=== PATIENT | male | born 1990 | race Caucasian/White ===

== ENCOUNTER 2018-09-27 17:33 | Emergency (ER) | payer SELFPAY ==
[~2018-09-27] VITALS: Ht 172.7 cm; Wt 112.0 kg
[2018-09-27] MEDS ORDERED: KETOROLAC 60MG/2ML VIAL IM ONE (18:15)
[2018-09-27 18:33] VITALS: BP 158/94
== END 2018-09-27 18:32 | disposition home or self-care (01) ==
LOC: ER 17:33
DX: S50.02XA Contusion of left elbow, initial encounter (principal); S40.012A Contusion of left shoulder, initial encounter; M62.838 Other muscle spasm; V49.59XA Passenger injured in collision with other motor vehicles in traffic accident, initial encounter; Y93.89 Activity, other specified; Y92.89 Other specified places as the place of occurrence of the external cause; Y99.8 Other external cause status; Z98.890 Other specified postprocedural states
CPT/HCPCS: 96372; 99283; J1885

== ENCOUNTER 2019-08-21 05:27 | Emergency (ER) | payer SELFPAY ==
[~2019-08-21] VITALS: Ht 172.7 cm; Wt 107.0 kg
[2019-08-21] MEDS ORDERED: OXYCODONE HCL/ACETAMINOPHEN 5/325MG TABLET PO ONE (06:15)
[2019-08-21 08:27] VITALS: BP 132/74
== END 2019-08-21 08:29 | disposition home or self-care (01) ==
LOC: ER 05:27
DX: M79.18 Myalgia, other site (principal); F17.200 Nicotine dependence, unspecified, uncomplicated; E66.9 Obesity, unspecified; V49.59XA Passenger injured in collision with other motor vehicles in traffic accident, initial encounter; Y93.9 Activity, unspecified; Y92.410 Unspecified street and highway as the place of occurrence of the external cause; Z98.84 Bariatric surgery status
CPT/HCPCS: 73030; 73070; 99283; A4565